=== PATIENT | female | born 1990 | race Caucasian/White ===

== ENCOUNTER 2021-10-06 04:16 | Day surgery (SDC) | payer OTHER ==
[2021-10-03 14:43] VITALS: BMI 31.1
[2021-10-06] MEDS ORDERED: PROPOFOL 20 ML ONE ×2 (15:36→15:55)
[2021-10-06] MEDS ORDERED: MIDAZOLAM HCL 2 MG/2 ML SINGLE DOSE VIAL ONE (15:36)
[2021-10-06] MEDS ORDERED: IODINE/POTASSIUM IODIDE 5%/10% 14 ML BOTTLE NR ONE (15:55)
[2021-10-06] MEDS ORDERED: FERRIC SUBSULFATE 500 ML BOTTLE TP ONE (15:58)
[2021-10-06] MEDS ORDERED: ACETAMINOPHEN 325 MG TABLET (FP) PO PRN (16:08)
[2021-10-06] MEDS ORDERED: IBUPROFEN 400 MG TABLET (FP) PO PRN (16:08)
[2021-10-06] MEDS ORDERED: ONDANSETRON 4 MG/2 ML VIAL IVPUSH PRN (16:12)
[2021-10-06] MEDS ORDERED: oxyCODONE HCL 5 MG TABLET PO PRN ×2 (16:12)
[2021-10-06] MEDS ORDERED: LACTATED RINGERS SOLUTION 1,000 ML IV SCH (16:15)
[2021-10-06 18:12] VITALS: BP 118/68; PULSE 78; TEMP 98.6
== END 2021-10-06 18:10 | disposition home or self-care (01) ==
LOC: JASU-SURG 04:16
PROVIDERS: ATTEND Obstetrics & Gynecology
PROC: 0UBC8ZX Excision of Cervix, Via Natural or Artificial Opening Endoscopic, Diagnostic (ICD-10-PCS; principal; 2021-10-06 13:30)
DX: N87.1 Moderate cervical dysplasia (principal)
CPT/HCPCS: 81025; 88305-TC; 94760